=== PATIENT | male | born 1990 | race Caucasian/White ===

== ENCOUNTER 2018-02-04 14:22 | Inpatient (IN) | payer OTHER ==
[~2018-02-04] VITALS: Ht 185.4 cm; Wt 88.1 kg
[~2018-02-04 14:22] MED LIST: ACIDOPHILUS1 EACH PO; ALBU90OI61 INH; AZIT500 PO; Avidoxy100 MG PO; BENZ100A PO; CEFU500T30 PO; DOCU100 PO; GUAI600T33 PO; IBUP800 PO; Percocet 5-3251 EACH PO
[2018-02-04 15:36] LABS: BASOPHILS ABSOLUTE AUTO 0.12 K/mm3 (0.00-0.23); BASOPHILS PERCENT AUTO 1 % (0-2); EOSINOPHILS ABSOLUTE AUTO 0.14 K/mm3 (0.00-0.68); EOSINOPHILS PERCENT AUTO 1 % (0-6); Hemoglobin 12.2 g/dL (13.5-17.5); IMMATURE GRAN ABSOLUTE AUTO 0.73 K/mm3 (0.00-0.10); IMMATURE GRAN PERCENT AUTO 4 % (0-1); LYMPHOCYTES ABSOLUTE AUTO 2.52 K/mm3 (0.84-5.20); LYMPHOCYTES PERCENT AUTO 13 % (21-46); MONOCYTES ABSOLUTE AUTO 1.41 K/mm3 (0.16-1.47); MONOCYTES PERCENT AUTO 7 % (4-13); Mean Corpuscular HGB 31.1 pg (26.0-34.0); Mean Corpuscular HGB Conc 32.1 g/dL (31.5-36.5); Mean Platelet Volume 8.2 fL (9.1-12.4); NEUTROPHILS ABSOLUTE AUTO 14.59 K/mm3 (1.96-9.15); NEUTROPHILS PERCENT AUTO 75 % (41-73); Platelet Count 892 K/mm3 (150-400); RDW Coefficient Variation 12.5 % (11.7-14.2); RDW Standard Deviation 44.5 fL (35.1-46.3); Red Blood Cell Count 3.92 M/mm3 (4.30-5.90); White Blood Cell Count 19.51 K/mm3 (4.00-11.30)
[2018-02-04 15:38] LABS: Mean Corpuscular Volume 97 fL (80-100)
[2018-02-04 15:58] LABS: Alanine Aminotransfer (ALT/SGP 151 U/L (12-78); Albumin, Blood 2.4 g/dL (3.4-5.0); Albumin/Globulin Ratio 0.4 (0.8-1.8); Alk Phos 199 U/L (50-136); Anion Gap 6 mmol/L (6-16); Aspartate Aminotrans (AST/SGOT 57 U/L (12-37); Bilirubin, Total 0.7 mg/dL (0.1-1.0); Blood Urea Nitrogen 9 mg/dL (8-24); Bun/Creatinine Ratio 12.8 (12.0-20.0); CO2, Blood 30 mmol/L (21-32); Calcium, Blood 9.1 mg/dL (8.5-10.1); Chloride, Blood 100 mmol/L (98-108); Globulin, Blood 6.1 g/dL (2.2-4.0); Glomerular Filtration Rate >60 (60-); Glucose, Blood 94 mg/dL (70-99); Potassium, Blood 3.8 mmol/L (3.5-5.5); Sodium, Blood 136 mmol/L (136-145); Total Protein, Blood 8.5 g/dL (6.4-8.2)
[2018-02-04 22:08] LABS: U Amphetamine Screen DETECTED; U Barbituate Screen Not Detected; U Benzodiazapine Screen Not Detected; U Buprenorphine Screen Not Detected; U Cannabinoids Screen DETECTED; U Cocaine Screen Not Detected; U Methadone Screen Not Detected; U Methamphetamine Screen Not Detected; U Opiates Screen Not Detected; U Oxycodone Screen Not Detected; U Phencyclidine Screen Not Detected; U Propoxyphene Screen Not Detected
[2018-02-05 05:46] LABS: BASOPHILS ABSOLUTE AUTO 0.13 K/mm3 (0.00-0.23); BASOPHILS PERCENT AUTO 1 % (0-2); EOSINOPHILS ABSOLUTE AUTO 0.26 K/mm3 (0.00-0.68); EOSINOPHILS PERCENT AUTO 2 % (0-6); Hematocrit 33.6 % (37.0-53.0); Hemoglobin 10.8 g/dL (13.5-17.5); IMMATURE GRAN ABSOLUTE AUTO 0.54 K/mm3 (0.00-0.10); IMMATURE GRAN PERCENT AUTO 4 % (0-1); LYMPHOCYTES ABSOLUTE AUTO 3.11 K/mm3 (0.84-5.20); LYMPHOCYTES PERCENT AUTO 20 % (21-46); MONOCYTES ABSOLUTE AUTO 1.31 K/mm3 (0.16-1.47); MONOCYTES PERCENT AUTO 9 % (4-13); Mean Corpuscular HGB 30.5 pg (26.0-34.0); Mean Corpuscular HGB Conc 32.1 g/dL (31.5-36.5); Mean Corpuscular Volume 95 fL (80-100); Mean Platelet Volume 8.4 fL (9.1-12.4); NEUTROPHILS ABSOLUTE AUTO 10.14 K/mm3 (1.96-9.15); NEUTROPHILS PERCENT AUTO 65 % (41-73); Platelet Count 750 K/mm3 (150-400); RDW Coefficient Variation 12.4 % (11.7-14.2); RDW Standard Deviation 43.1 fL (35.1-46.3); Red Blood Cell Count 3.54 M/mm3 (4.30-5.90); White Blood Cell Count 15.49 K/mm3 (4.00-11.30)
[2018-02-05 05:58] LABS: International Normalized Ratio 1.13; Prothrombin Time Results 11.6 Sec (9.7-11.5)
[2018-02-05 06:32] LABS: Magnesium, Blood 2.2 mg/dL (1.6-2.4)
[2018-02-05 06:33] LABS: Alanine Aminotransfer (ALT/SGP 107 U/L (12-78); Albumin, Blood 1.9 g/dL (3.4-5.0); Albumin/Globulin Ratio 0.4 (0.8-1.8); Alk Phos 162 U/L (50-136); Anion Gap 8 mmol/L (6-16); Aspartate Aminotrans (AST/SGOT 42 U/L (12-37); Bilirubin, Total 0.8 mg/dL (0.1-1.0); Blood Urea Nitrogen 7 mg/dL (8-24); Bun/Creatinine Ratio 9.1 (12.0-20.0); CO2, Blood 27 mmol/L (21-32); Calcium, Blood 8.4 mg/dL (8.5-10.1); Chloride, Blood 104 mmol/L (98-108); Creatinine, Blood 0.77 mg/dL (0.60-1.20); Globulin, Blood 4.9 g/dL (2.2-4.0); Glomerular Filtration Rate >60 (60-); Glucose, Blood 84 mg/dL (70-99); Potassium, Blood 4.1 mmol/L (3.5-5.5); Sodium, Blood 139 mmol/L (136-145); Total Protein, Blood 6.8 g/dL (6.4-8.2)
[2018-02-05 12:24] LABS: Protein, Body Fluid 4.8 g/dL
[2018-02-05 12:31] LABS: Appearance, Body Fluid Cloudy (Clear); Automated BF RBC Count 0.016 M/mm3 (0-0); Body Fluid WBC Count 25620 /mm3 (0-999); Color, Body Fluid Yellow (None-Yellow); RBC Count, Body Fluid 16000 /mm3 (0-0)
[2018-02-05 13:30] LABS: Total Cell Count, Body Fluid 100
[2018-02-05 13:32] LABS: Glucose, Body Fluid <1 mg/dL
[2018-02-05 13:49] LABS: Vancomycin, Trough 20.4 ug/mL (5.0-10.0)
[2018-02-05 14:16] LABS: Lactate Dehydrogenase, Body Fl 5381 U/L
[2018-02-06 04:46] LABS: BASOPHILS ABSOLUTE AUTO 0.13 K/mm3 (0.00-0.23); BASOPHILS PERCENT AUTO 1 % (0-2); EOSINOPHILS ABSOLUTE AUTO 0.29 K/mm3 (0.00-0.68); EOSINOPHILS PERCENT AUTO 3 % (0-6); Hematocrit 33.6 % (37.0-53.0); Hemoglobin 10.7 g/dL (13.5-17.5); IMMATURE GRAN PERCENT AUTO 4 % (0-1); LYMPHOCYTES ABSOLUTE AUTO 2.95 K/mm3 (0.84-5.20); LYMPHOCYTES PERCENT AUTO 27 % (21-46); MONOCYTES PERCENT AUTO 8 % (4-13); Mean Corpuscular HGB 31.1 pg (26.0-34.0); Mean Corpuscular HGB Conc 31.8 g/dL (31.5-36.5); Mean Platelet Volume 8.2 fL (9.1-12.4); NEUTROPHILS ABSOLUTE AUTO 6.36 K/mm3 (1.96-9.15); NEUTROPHILS PERCENT AUTO 58 % (41-73); Platelet Count 717 K/mm3 (150-400); RDW Coefficient Variation 12.2 % (11.7-14.2); Red Blood Cell Count 3.44 M/mm3 (4.30-5.90); White Blood Cell Count 11.03 K/mm3 (4.00-11.30)
[2018-02-06 04:48] LABS: Mean Corpuscular Volume 98 fL (80-100)
[2018-02-06 05:04] LABS: Anion Gap 7 mmol/L (6-16); Blood Urea Nitrogen 7 mg/dL (8-24); Bun/Creatinine Ratio 9.5 (12.0-20.0); CO2, Blood 26 mmol/L (21-32); Calcium, Blood 8.2 mg/dL (8.5-10.1); Chloride, Blood 109 mmol/L (98-108); Creatinine, Blood 0.74 mg/dL (0.60-1.20); Glomerular Filtration Rate >60 (60-); Glucose, Blood 104 mg/dL (70-99); Sodium, Blood 142 mmol/L (136-145)
[2018-02-06 15:36] LABS: Vancomycin, Trough 19.7 ug/mL (5.0-10.0)
[2018-02-07 07:18] LABS: BASOPHILS ABSOLUTE AUTO 0.14 K/mm3 (0.00-0.23); BASOPHILS PERCENT AUTO 1 % (0-2); EOSINOPHILS ABSOLUTE AUTO 0.41 K/mm3 (0.00-0.68); EOSINOPHILS PERCENT AUTO 4 % (0-6); Hematocrit 35.3 % (37.0-53.0); Hemoglobin 11.3 g/dL (13.5-17.5); IMMATURE GRAN ABSOLUTE AUTO 0.19 K/mm3 (0.00-0.10); IMMATURE GRAN PERCENT AUTO 2 % (0-1); LYMPHOCYTES ABSOLUTE AUTO 2.56 K/mm3 (0.84-5.20); LYMPHOCYTES PERCENT AUTO 23 % (21-46); MONOCYTES ABSOLUTE AUTO 0.87 K/mm3 (0.16-1.47); MONOCYTES PERCENT AUTO 8 % (4-13); Mean Corpuscular HGB 31.2 pg (26.0-34.0); Mean Corpuscular Volume 98 fL (80-100); Mean Platelet Volume 8.3 fL (9.1-12.4); NEUTROPHILS ABSOLUTE AUTO 7.23 K/mm3 (1.96-9.15); NEUTROPHILS PERCENT AUTO 63 % (41-73); Platelet Count 693 K/mm3 (150-400); RDW Coefficient Variation 12.3 % (11.7-14.2); RDW Standard Deviation 44.2 fL (35.1-46.3); Red Blood Cell Count 3.62 M/mm3 (4.30-5.90)
[2018-02-07 07:41] LABS: Alanine Aminotransfer (ALT/SGP 82 U/L (12-78); Albumin, Blood 1.9 g/dL (3.4-5.0); Albumin/Globulin Ratio 0.4 (0.8-1.8); Alk Phos 144 U/L (50-136); Anion Gap 9 mmol/L (6-16); Aspartate Aminotrans (AST/SGOT 30 U/L (12-37); Bilirubin, Total 0.3 mg/dL (0.1-1.0); Blood Urea Nitrogen 6 mg/dL (8-24); Bun/Creatinine Ratio 6.9 (12.0-20.0); CO2, Blood 27 mmol/L (21-32); Calcium, Blood 8.5 mg/dL (8.5-10.1); Chloride, Blood 108 mmol/L (98-108); Creatinine, Blood 0.87 mg/dL (0.60-1.20); Globulin, Blood 5.1 g/dL (2.2-4.0); Glomerular Filtration Rate >60 (60-); Glucose, Blood 99 mg/dL (70-99); Potassium, Blood 4.3 mmol/L (3.5-5.5); Sodium, Blood 144 mmol/L (136-145)
[2018-02-07 08:21] LABS: HBSAG SCREEN Negative (Negative); HEP A AB, IGM Negative (Negative); HEP B CORE AB, IGM Negative (Negative); HEP C VIRUS AB <0.1 (0.0-0.9)
[2018-02-08 05:03] LABS: BASOPHILS ABSOLUTE AUTO 0.13 K/mm3 (0.00-0.23); BASOPHILS PERCENT AUTO 1 % (0-2); EOSINOPHILS ABSOLUTE AUTO 0.34 K/mm3 (0.00-0.68); EOSINOPHILS PERCENT AUTO 3 % (0-6); Hematocrit 35.4 % (37.0-53.0); Hemoglobin 11.1 g/dL (13.5-17.5); IMMATURE GRAN ABSOLUTE AUTO 0.12 K/mm3 (0.00-0.10); IMMATURE GRAN PERCENT AUTO 1 % (0-1); LYMPHOCYTES ABSOLUTE AUTO 2.33 K/mm3 (0.84-5.20); LYMPHOCYTES PERCENT AUTO 19 % (21-46); MONOCYTES ABSOLUTE AUTO 0.76 K/mm3 (0.16-1.47); MONOCYTES PERCENT AUTO 6 % (4-13); Mean Corpuscular HGB 30.6 pg (26.0-34.0); Mean Corpuscular HGB Conc 31.4 g/dL (31.5-36.5); Mean Corpuscular Volume 98 fL (80-100); Mean Platelet Volume 8.4 fL (9.1-12.4); NEUTROPHILS ABSOLUTE AUTO 8.53 K/mm3 (1.96-9.15); NEUTROPHILS PERCENT AUTO 70 % (41-73); Platelet Count 722 K/mm3 (150-400); RDW Coefficient Variation 12.1 % (11.7-14.2); RDW Standard Deviation 43.5 fL (35.1-46.3); Red Blood Cell Count 3.63 M/mm3 (4.30-5.90); White Blood Cell Count 12.21 K/mm3 (4.00-11.30)
[2018-02-08 11:54] LABS: Creatinine, Blood 0.93 mg/dL (0.60-1.20); Vancomycin, Trough 18.3 ug/mL (5.0-10.0)
[2018-02-09 05:18] LABS: BASOPHILS ABSOLUTE AUTO 0.16 K/mm3 (0.00-0.23); BASOPHILS PERCENT AUTO 1 % (0-2); EOSINOPHILS ABSOLUTE AUTO 0.42 K/mm3 (0.00-0.68); EOSINOPHILS PERCENT AUTO 3 % (0-6); Hematocrit 35.8 % (37.0-53.0); Hemoglobin 11.3 g/dL (13.5-17.5); IMMATURE GRAN ABSOLUTE AUTO 0.15 K/mm3 (0.00-0.10); IMMATURE GRAN PERCENT AUTO 1 % (0-1); LYMPHOCYTES ABSOLUTE AUTO 2.57 K/mm3 (0.84-5.20); LYMPHOCYTES PERCENT AUTO 19 % (21-46); MONOCYTES ABSOLUTE AUTO 1.01 K/mm3 (0.16-1.47); MONOCYTES PERCENT AUTO 8 % (4-13); Mean Corpuscular HGB Conc 31.6 g/dL (31.5-36.5); Mean Corpuscular Volume 98 fL (80-100); Mean Platelet Volume 8.5 fL (9.1-12.4); NEUTROPHILS ABSOLUTE AUTO 9.23 K/mm3 (1.96-9.15); NEUTROPHILS PERCENT AUTO 68 % (41-73); Platelet Count 647 K/mm3 (150-400); RDW Coefficient Variation 12.3 % (11.7-14.2); RDW Standard Deviation 44.2 fL (35.1-46.3); Red Blood Cell Count 3.65 M/mm3 (4.30-5.90); White Blood Cell Count 13.54 K/mm3 (4.00-11.30)
[2018-02-09 05:39] LABS: Alanine Aminotransfer (ALT/SGP 67 U/L (12-78); Albumin, Blood 2.1 g/dL (3.4-5.0); Albumin/Globulin Ratio 0.4 (0.8-1.8); Alk Phos 120 U/L (50-136); Anion Gap 6 mmol/L (6-16); Aspartate Aminotrans (AST/SGOT 30 U/L (12-37); Bilirubin, Total 0.3 mg/dL (0.1-1.0); Blood Urea Nitrogen 6 mg/dL (8-24); Bun/Creatinine Ratio 6.4 (12.0-20.0); CO2, Blood 29 mmol/L (21-32); Calcium, Blood 8.6 mg/dL (8.5-10.1); Chloride, Blood 108 mmol/L (98-108); Creatinine, Blood 0.94 mg/dL (0.60-1.20); Globulin, Blood 4.8 g/dL (2.2-4.0); Glomerular Filtration Rate >60 (60-); Glucose, Blood 95 mg/dL (70-99); Potassium, Blood 3.8 mmol/L (3.5-5.5); Sodium, Blood 143 mmol/L (136-145); Total Protein, Blood 6.9 g/dL (6.4-8.2)
[2018-02-09] MEDS ORDERED: ALBU90OI INH (14:20)
[2018-02-09] MEDS ORDERED: ACET325 PO (14:21)
[2018-02-09] MEDS ORDERED: NICO21TP TOP (14:22)
[2018-02-09] MEDS ORDERED: ONDA4ODT SL (14:22)
[2018-02-09] MEDS ORDERED: Augmentin Xr 11 EACH PO (14:23)
[2018-02-09] MEDS ORDERED: Percocet 5-3251 EACH PO (14:23)
[2018-02-10 13:10] LABS: FINAL INTERPRETATION Negative (.); HIV 1 AB Negative (Negative); HIV 2 AB Negative (Negative)
== END 2018-02-09 14:39 | disposition home or self-care (01) | DRG 193 ==
LOC: ER 14:22 → MEDS 19:45
PROVIDERS: Emergency Medicine; Family Medicine; Hospitalist; Internal Medicine Critical Care Medicine; Nurse Practitioner Acute Care; Pharmacist
PROC: 0W9930Z Drainage of Right Pleural Cavity with Drainage Device, Percutaneous Approach (ICD-10-PCS; principal; 2018-02-05)
DX: J18.9 Pneumonia, unspecified organism (principal); J86.9 Pyothorax without fistula; J91.8 Pleural effusion in other conditions classified elsewhere; F17.210 Nicotine dependence, cigarettes, uncomplicated; J45.20 Mild intermittent asthma, uncomplicated; K02.9 Dental caries, unspecified; F15.10 Other stimulant abuse, uncomplicated; F11.10 Opioid abuse, uncomplicated; D64.9 Anemia, unspecified; D47.3 Essential (hemorrhagic) thrombocythemia; R00.1 Bradycardia, unspecified; Z79.2 Long term (current) use of antibiotics; Z79.891 Long term (current) use of opiate analgesic; Z79.899 Other long term (current) drug therapy
CPT/HCPCS: 36415; 71046; 71260; 75989; 80048; 80053; 80074; 80202; 82565; 82945; 83605; 83615; 83690; 83735; 83986; 84157; 85025; 85027; 85610; 85730; 86701; 86702; 87040; 87070; 87205; 87449; 89051; 93005; 93010; 94760; 96365; 96366; 96368; 99285-25; J2543; J3010; J3370; J7030; J7050; J7120; Q9967

== ENCOUNTER → 2018-08-05 | Outpatient (CLI) | payer OTHER ==
[~2018-08-05] MED LIST changes: +ACET325 PO; +ALBU90OI INH; +Augmentin Xr 11 EACH PO; +NICO21TP TOP; +ONDA4ODT SL
[2018-08-05 14:16] LABS: BASOPHILS ABSOLUTE AUTO 0.06 K/mm3 (0.00-0.23); BASOPHILS PERCENT AUTO 1 % (0-2); EOSINOPHILS ABSOLUTE AUTO 0.52 K/mm3 (0.00-0.68); EOSINOPHILS PERCENT AUTO 6 % (0-6); Hematocrit 43.3 % (37.0-53.0); Hemoglobin 14.5 g/dL (13.5-17.5); IMMATURE GRAN ABSOLUTE AUTO 0.02 K/mm3 (0.00-0.10); IMMATURE GRAN PERCENT AUTO 0 % (0-1); LYMPHOCYTES ABSOLUTE AUTO 2.22 K/mm3 (0.84-5.20); LYMPHOCYTES PERCENT AUTO 27 % (21-46); MONOCYTES ABSOLUTE AUTO 0.73 K/mm3 (0.16-1.47); MONOCYTES PERCENT AUTO 9 % (4-13); Mean Corpuscular HGB 31.3 pg (26.0-34.0); Mean Corpuscular HGB Conc 33.5 g/dL (31.5-36.5); Mean Corpuscular Volume 94 fL (80-100); Mean Platelet Volume 9.5 fL (9.1-12.4); NEUTROPHILS ABSOLUTE AUTO 4.58 K/mm3 (1.96-9.15); NEUTROPHILS PERCENT AUTO 56 % (41-73); Platelet Count 336 K/mm3 (150-400); RDW Coefficient Variation 13.2 % (11.7-14.2); RDW Standard Deviation 45.2 fL (35.1-46.3); Red Blood Cell Count 4.63 M/mm3 (4.30-5.90); White Blood Cell Count 8.13 K/mm3 (4.00-11.30)
[2018-08-05 14:22] LABS: Anion Gap 6 mmol/L (6-16); Blood Urea Nitrogen 11 mg/dL (8-24); Bun/Creatinine Ratio 10.7 (12.0-20.0); CO2, Blood 29 mmol/L (21-32); Calcium, Blood 8.9 mg/dL (8.5-10.1); Chloride, Blood 106 mmol/L (98-108); Creatinine, Blood 1.03 mg/dL (0.60-1.20); Glomerular Filtration Rate >60 (60-); Glucose, Blood 81 mg/dL (70-99); Potassium, Blood 4.2 mmol/L (3.5-5.5); Sodium, Blood 141 mmol/L (136-145)
== END | disposition home or self-care (01) ==
LOC: LAB SHORT 14:12 → LAB EV 14:12
PROVIDERS: Family Medicine
DX: R55 Syncope and collapse (principal)
CPT/HCPCS: 80048; 85025

== ENCOUNTER 2019-09-12 19:20 | Emergency (ER) | payer OTHER ==
[~2019-09-12] VITALS: Ht 185.4 cm; Wt 76.7 kg
[2019-09-12 19:47] LABS: BASOPHILS ABSOLUTE AUTO 0.08 K/mm3 (0.00-0.23); BASOPHILS PERCENT AUTO 1 % (0-2); EOSINOPHILS ABSOLUTE AUTO 0.95 K/mm3 (0.00-0.68); EOSINOPHILS PERCENT AUTO 7 % (0-6); Hematocrit 48.4 % (37.0-53.0); Hemoglobin 15.7 g/dL (13.5-17.5); IMMATURE GRAN ABSOLUTE AUTO 0.05 K/mm3 (0.00-0.10); IMMATURE GRAN PERCENT AUTO 0 % (0-1); LYMPHOCYTES ABSOLUTE AUTO 3.37 K/mm3 (0.84-5.20); LYMPHOCYTES PERCENT AUTO 25 % (21-46); MONOCYTES ABSOLUTE AUTO 1.74 K/mm3 (0.16-1.47); MONOCYTES PERCENT AUTO 13 % (4-13); Mean Corpuscular HGB 31.2 pg (26.0-34.0); Mean Corpuscular HGB Conc 32.4 g/dL (31.5-36.5); Mean Corpuscular Volume 96 fL (80-100); Mean Platelet Volume 10.5 fL (9.1-12.4); NEUTROPHILS ABSOLUTE AUTO 7.42 K/mm3 (1.96-9.15); NEUTROPHILS PERCENT AUTO 54 % (41-73); Platelet Count 294 K/mm3 (150-400); RDW Coefficient Variation 12.8 % (11.7-14.2); RDW Standard Deviation 44.7 fL (35.1-46.3); Red Blood Cell Count 5.04 M/mm3 (4.30-5.90); White Blood Cell Count 13.61 K/mm3 (4.00-11.30)
[2019-09-12] MEDS ORDERED: Zithromax250 MG PO (21:20)
[2019-09-12] MEDS ORDERED: ALBU90OI INH (21:20)
[2019-09-12] MEDS ORDERED: Prednisone50 MG PO (21:20)
[2019-09-12 21:50] LABS: Alanine Aminotransfer (ALT/SGP 29 U/L (12-78); Albumin, Blood 3.8 g/dL (3.4-5.0); Alk Phos 113 U/L (50-136); Anion Gap 0 mmol/L (6-16); Aspartate Aminotrans (AST/SGOT 26 U/L (12-37); Bilirubin, Total 0.6 mg/dL (0.1-1.0); Blood Urea Nitrogen 10 mg/dL (8-24); Bun/Creatinine Ratio 13.1 (12.0-20.0); CO2, Blood 33 mmol/L (21-32); Calcium, Blood 9.2 mg/dL (8.5-10.1); Chloride, Blood 108 mmol/L (98-108); Creatinine, Blood 0.76 mg/dL (0.60-1.20); Globulin, Blood 3.9 g/dL (2.2-4.0); Glomerular Filtration Rate >60 (60-); Glucose, Blood 114 mg/dL (70-99); Potassium, Blood 4.7 mmol/L (3.5-5.5); Sodium, Blood 141 mmol/L (136-145); Total Protein, Blood 7.7 g/dL (6.4-8.2)
== END 2019-09-12 23:46 | disposition home or self-care (01) ==
LOC: ER 19:20
PROVIDERS: Emergency Medicine
DX: J45.901 Unspecified asthma with (acute) exacerbation (principal); J20.9 Acute bronchitis, unspecified; Z79.2 Long term (current) use of antibiotics; Z79.899 Other long term (current) drug therapy; F17.200 Nicotine dependence, unspecified, uncomplicated
CPT/HCPCS: 36416; 71046; 80053; 85025; 93005; 93010; 94640; 94644; 99285-25; J7512

== ENCOUNTER 2021-01-02 08:16 | Inpatient (IN) | payer OTHER ==
[~2021-01-02] VITALS: Ht 185.4 cm; Wt 70.8 kg
[~2021-01-02 08:16] MED LIST changes: +Deltasone 10 mg10 MG; +FLUTICASONE-SA1 EAC2 INH; +PROAIR RESPICL90 MCG INH; +Prednisone50 MG PO; +Zithromax250 MG PO
[2021-01-02 09:36] LABS: BASOPHILS ABSOLUTE AUTO 0.06 K/mm3 (0.00-0.23); BASOPHILS PERCENT AUTO 0 % (0-2); EOSINOPHILS ABSOLUTE AUTO 0.53 K/mm3 (0.00-0.68); EOSINOPHILS PERCENT AUTO 3 % (0-6); Hematocrit 48.6 % (37.0-53.0); Hemoglobin 16.1 g/dL (13.5-17.5); IMMATURE GRAN ABSOLUTE AUTO 0.08 K/mm3 (0.00-0.10); IMMATURE GRAN PERCENT AUTO 0 % (0-1); LYMPHOCYTES ABSOLUTE AUTO 1.46 K/mm3 (0.84-5.20); LYMPHOCYTES PERCENT AUTO 8 % (21-46); MONOCYTES ABSOLUTE AUTO 0.82 K/mm3 (0.16-1.47); MONOCYTES PERCENT AUTO 5 % (4-13); Mean Corpuscular HGB 30.7 pg (26.0-34.0); Mean Corpuscular HGB Conc 33.1 g/dL (31.5-36.5); Mean Corpuscular Volume 93 fL (80-100); Mean Platelet Volume 9.5 fL (9.1-12.4); NEUTROPHILS ABSOLUTE AUTO 15.14 K/mm3 (1.96-9.15); NEUTROPHILS PERCENT AUTO 84 % (41-73); Platelet Count 347 K/mm3 (150-400); RDW Coefficient Variation 12.7 % (11.7-14.2); RDW Standard Deviation 43.5 fL (35.1-46.3); Red Blood Cell Count 5.25 M/mm3 (4.30-5.90); White Blood Cell Count 18.09 K/mm3 (4.00-11.30)
[2021-01-02 09:57] LABS: Anion Gap 4 mmol/L (6-16); Blood Urea Nitrogen 14 mg/dL (8-24); Bun/Creatinine Ratio 17.2 (12.0-20.0); CO2, Blood 28 mmol/L (21-32); Calcium, Blood 9.7 mg/dL (8.5-10.1); Chloride, Blood 108 mmol/L (98-108); Creatinine, Blood 0.81 mg/dL (0.60-1.20); Glomerular Filtration Rate >60 (60-); Glucose, Blood 100 mg/dL (70-99); Potassium, Blood 4.9 mmol/L (3.5-5.5); Sodium, Blood 140 mmol/L (136-145)
[2021-01-02 12:48] LABS: Source, Urine Clean Catch
[2021-01-02 12:51] LABS: Appearance, Urine Clear (Clear); Bilirubin, Urine Neg (Neg); Blood, Urine 2+ (Neg); Color, Urine Yellow (P-Yellow); Glucose Qualitative, Urine Neg (Neg); Ketones, Urine 3+ (Neg); Leukocyte Esterase, Urine Neg (Neg); Nitrite, Urine Neg (Neg); Protein, Urine Neg (Neg); Urobilinogen, Urine NORM (Normal)
[2021-01-02 12:57] LABS: Base Excess Venous 2.7 mmol/L; Bicarbonate Venous 24.4 mmol/L (24.0-30.0); PO2 Venous 46.9 mmHg (38-42); pH Blood Venous 7.27 (7.34-7.37)
[2021-01-02 13:04] LABS: U Amphetamine Screen DETECTED; U Barbituate Screen Not Detected; U Benzodiazapine Screen Not Detected; U Cannabinoids Screen DETECTED; U Cocaine Screen Not Detected; U Methadone Screen Not Detected; U Methamphetamine Screen DETECTED; U Opiates Screen Not Detected; U Phencyclidine Screen Not Detected
[2021-01-02 13:05] LABS: U Buprenorphine Screen Not Detected; U Oxycodone Screen Not Detected; U Propoxyphene Screen Not Detected
[2021-01-02 13:26] LABS: Bacteria Few /hpf; Red Blood Cells, Urine 0-2 /hpf (0-2); Squamous Epithelial Cells Rare /hpf (Few); White Blood Cells, Urine Rare /hpf (0-5)
--- NOTE | 2021-01-02 16:05 | NUR ---
PATIENT ARRIVED TO UNIT APPROX 1520 VIA WHEELCHAIR PATIENT A&OX4 VSS UP AD GEORGE WITH STEADY GAIT ADMIT FOR ASTHMA/COPD EXACERBATION SATS 99-100% ON RA VERBALIZES MAGALLANES SKIN W/D INTACT ORIENTATED TO ENVIROMENT NO S/S DISTRESS NOTED WILL CONT TO MONITOR
[2021-01-03 05:55] LABS: BASOPHILS ABSOLUTE AUTO 0.04 K/mm3 (0.00-0.23); BASOPHILS PERCENT AUTO 0 % (0-2); EOSINOPHILS ABSOLUTE AUTO 0.03 K/mm3 (0.00-0.68); EOSINOPHILS PERCENT AUTO 0 % (0-6); Hematocrit 43.6 % (37.0-53.0); Hemoglobin 14.7 g/dL (13.5-17.5); IMMATURE GRAN ABSOLUTE AUTO 0.33 K/mm3 (0.00-0.10); IMMATURE GRAN PERCENT AUTO 1 % (0-1); LYMPHOCYTES ABSOLUTE AUTO 1.15 K/mm3 (0.84-5.20); LYMPHOCYTES PERCENT AUTO 4 % (21-46); MONOCYTES ABSOLUTE AUTO 1.49 K/mm3 (0.16-1.47); MONOCYTES PERCENT AUTO 5 % (4-13); Mean Corpuscular HGB 30.9 pg (26.0-34.0); Mean Corpuscular HGB Conc 33.7 g/dL (31.5-36.5); Mean Corpuscular Volume 92 fL (80-100); Mean Platelet Volume 9.2 fL (9.1-12.4); NEUTROPHILS ABSOLUTE AUTO 24.59 K/mm3 (1.96-9.15); NEUTROPHILS PERCENT AUTO 89 % (41-73); Platelet Count 386 K/mm3 (150-400); RDW Coefficient Variation 12.7 % (11.7-14.2); RDW Standard Deviation 42.5 fL (35.1-46.3); Red Blood Cell Count 4.76 M/mm3 (4.30-5.90); White Blood Cell Count 27.63 K/mm3 (4.00-11.30)
[2021-01-03 06:17] LABS: Alanine Aminotransfer (ALT/SGP 23 U/L (12-78); Albumin, Blood 3.4 g/dL (3.4-5.0); Albumin/Globulin Ratio 0.8 (0.8-1.8); Alk Phos 67 U/L (50-136); Anion Gap 4 mmol/L (6-16); Aspartate Aminotrans (AST/SGOT 14 U/L (12-37); Bilirubin, Total 1.5 mg/dL (0.1-1.0); Blood Urea Nitrogen 11 mg/dL (8-24); Bun/Creatinine Ratio 14.6 (12.0-20.0); CO2, Blood 26 mmol/L (21-32); Calcium, Blood 9.5 mg/dL (8.5-10.1); Chloride, Blood 111 mmol/L (98-108); Creatinine, Blood 0.76 mg/dL (0.60-1.20); Glomerular Filtration Rate >60 (60-); Glucose, Blood 112 mg/dL (70-99); Magnesium, Blood 2.3 mg/dL (1.6-2.4); Potassium, Blood 4.2 mmol/L (3.5-5.5); Sodium, Blood 141 mmol/L (136-145); Total Protein, Blood 7.4 g/dL (6.4-8.2)
--- NOTE | 2021-01-03 08:08 | NUR ---
PT IA A&OX4. PT'S VITAL SIGNS ARE WNL. WHEEZING NOTED ON ALL FOUR QUADRANTS OF PATIENT'S CHEST. PT'S SOLU MEDROL IV ADMINISTERED, PT TOLERATED WELL. PT DENIES PAIN OR DISCOMFORT.
--- NOTE | 2021-01-03 16:05 | NUR ---
SUMMARY: PT IS A/O, VSS, NO ACUTE CHANGE TODAY. PT CONTINUES ON 2L 02 SP02 96%. PT REPORTS MORE SOB WITH INCREASED ACTIVITY , PT ABLE TO SHOWER TODAY WHILE SITTING ON SHOWER CHAIR AND TOLERATED WELL. PRN BREATHING TX AND IV SOLUMEDROL GIVEN. NO C/O CP, NO ACUTE CONCERNS.WILL CTM AND REPORT TO [facility].
[2021-01-04 04:42] LABS: BASOPHILS ABSOLUTE AUTO 0.03 K/mm3 (0.00-0.23); BASOPHILS PERCENT AUTO 0 % (0-2); EOSINOPHILS PERCENT AUTO 0 % (0-6); Hematocrit 42.4 % (37.0-53.0); Hemoglobin 14.2 g/dL (13.5-17.5); IMMATURE GRAN ABSOLUTE AUTO 0.66 K/mm3 (0.00-0.10); IMMATURE GRAN PERCENT AUTO 2 % (0-1); LYMPHOCYTES ABSOLUTE AUTO 0.66 K/mm3 (0.84-5.20); LYMPHOCYTES PERCENT AUTO 2 % (21-46); MONOCYTES ABSOLUTE AUTO 0.55 K/mm3 (0.16-1.47); MONOCYTES PERCENT AUTO 2 % (4-13); Mean Corpuscular HGB Conc 33.5 g/dL (31.5-36.5); Mean Corpuscular Volume 93 fL (80-100); Mean Platelet Volume 9.5 fL (9.1-12.4); NEUTROPHILS PERCENT AUTO 93 % (41-73); Platelet Count 362 K/mm3 (150-400); RDW Standard Deviation 44.2 fL (35.1-46.3); Red Blood Cell Count 4.58 M/mm3 (4.30-5.90)
[2021-01-04 04:59] LABS: Albumin, Blood 3.3 g/dL (3.4-5.0); Anion Gap 4 mmol/L (6-16); Blood Urea Nitrogen 18 mg/dL (8-24); Bun/Creatinine Ratio 22.2 (12.0-20.0); CO2, Blood 28 mmol/L (21-32); Calcium, Blood 9.8 mg/dL (8.5-10.1); Chloride, Blood 108 mmol/L (98-108); Creatinine, Blood 0.81 mg/dL (0.60-1.20); Glomerular Filtration Rate >60 (60-); Glucose, Blood 120 mg/dL (70-99); Phosphorus, Blood 2.7 mg/dL (2.5-4.9); Potassium, Blood 4.4 mmol/L (3.5-5.5); Sodium, Blood 140 mmol/L (136-145)
--- NOTE | 2021-01-04 06:23 | NUR ---
30 year old MAle homeless & had acute panic attack & COPD prior to admit with good improvement noted with neb use. weaned off supplemental oxygen. 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 Sw referral for unmet needs.
--- NOTE | 2021-01-04 15:50 | NUR ---
PATIENT REMAINS STABLE THROUGHOUT SHIFT NO CHANGES IN CONDITION NOTED VSS REMAINS ON RA SATS 97-100% LS CLEAR THROUGHOUT REMAINS WITH DRY NON-PRODUCTIVE COUGH VERBALIZES SOME MAGALLANES UP AD GEORGE INDEPENDENT WITH ADL'S GAIT STEADY A&OX4 DENIES PAIN NO S/S DISRRESS NOTED WILL CONT TO MONITOR
--- NOTE | 2021-01-05 06:49 | NUR ---
Pt weaning off steroids & continues to be cooperativ. Room air sats greater than 90%. Lacks housing & resouces says he does have medical insurance. 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
[2021-01-05] MEDS ORDERED: AZIT500 PO (12:19)
[2021-01-05] MEDS ORDERED: GUAI600T33 PO (12:20)
[2021-01-05] MEDS ORDERED: ALBU90OI INH (12:26)
[2021-01-05] MEDS ORDERED: FLUT1DIS5 INH (12:26)
[2021-01-05] MEDS ORDERED: Prednisone10 MG PO (12:27)
--- NOTE | 2021-01-05 13:16 | NUR ---
PATIENT A&OX4 UP AD GEORGE VSS ON RA SATS 100% DENIES PAIN OR DISCOMFORT PATIENT TO BE DISCHARGED PER ORDERS PATIENT WORKING WITH CASE MAN FOR DC PLANNING PATIENT WITH CELL PHONE IN HIS POSESSION PROVIDED BY ALONSO MATIAS ALL DISCHARGE INSTRUCTIONS/PAPERWORK PROVIDED INCLUDING MEDICATIONS DISEAS PROCESS MANAGEMENT AND FOLLOW UP CARE PATIENT VERBALIZES GOOD UNDERSTANDING DC TO RT FOREARM DC'D NO COMPLICATIONS PATIENT CURRENTLY WAITING ON CAB TO PICK HIM UP TO TRANSPORT TO [facility] PER [employer] ARRANGENTS
--- NOTE | 2021-01-05 16:13 | NUR ---
PATIENT DISCHARGED AT THIS TIME PRE ARRANGED CAB HERE TO TRANSPORT PATIENT AMUBLATORY WITH STEADY GAIT ESCORTED OFF OF UNIT BY NURSE NO COMPLIATIONS NOTED NO CONCERNS VOICED AT TIME OF DISCHARGED PATIENT LEFT WITH ALL PERSONAL BELONGINGS
== END 2021-01-05 16:13 | disposition home or self-care (01) | DRG 189 ==
LOC: ER 08:16 → MEDS 08:17
PROVIDERS: Emergency Medicine; Internal Medicine; Nurse Practitioner Acute Care; ADMIT Internal Medicine
DX: J96.01 Acute respiratory failure with hypoxia (principal); J44.1 Chronic obstructive pulmonary disease with (acute) exacerbation; Z20.822 Contact with and (suspected) exposure to COVID-19; F17.210 Nicotine dependence, cigarettes, uncomplicated; F15.10 Other stimulant abuse, uncomplicated; D72.829 Elevated white blood cell count, unspecified; T38.0X5A Adverse effect of glucocorticoids and synthetic analogues, initial encounter; Z59.0 Homelessness
CPT/HCPCS: 36415; 36416; 71045; 80048; 80053; 80069; 81001; 82803; 83735; 83880; 84145; 85025; 94640; 94644; 94760; 94761; 94762; 96372; 96374; 96376; 99285-25; A9270; G0378; J1650; J2930; J7030

== ENCOUNTER 2021-02-07 09:56 | Emergency (ER) | payer OTHER ==
[~2021-02-07] VITALS: Ht 185.4 cm; Wt 68.0 kg
[~2021-02-07 09:56] MED LIST changes: +FLUT1DIS5 INH; +Prednisone10 MG PO
[2021-02-07 10:39] LABS: BASOPHILS ABSOLUTE AUTO 0.08 K/mm3 (0.00-0.23); BASOPHILS PERCENT AUTO 1 % (0-2); EOSINOPHILS ABSOLUTE AUTO 0.23 K/mm3 (0.00-0.68); EOSINOPHILS PERCENT AUTO 1 % (0-6); Hematocrit 42.4 % (37.0-53.0); IMMATURE GRAN ABSOLUTE AUTO 0.06 K/mm3 (0.00-0.10); IMMATURE GRAN PERCENT AUTO 0 % (0-1); LYMPHOCYTES ABSOLUTE AUTO 2.68 K/mm3 (0.84-5.20); LYMPHOCYTES PERCENT AUTO 16 % (21-46); MONOCYTES PERCENT AUTO 9 % (4-13); Mean Corpuscular HGB 30.9 pg (26.0-34.0); Mean Corpuscular Volume 94 fL (80-100); Mean Platelet Volume 9.4 fL (9.1-12.4); NEUTROPHILS ABSOLUTE AUTO 12.54 K/mm3 (1.96-9.15); NEUTROPHILS PERCENT AUTO 73 % (41-73); Platelet Count 397 K/mm3 (150-400); RDW Coefficient Variation 12.9 % (11.7-14.2); RDW Standard Deviation 44.1 fL (35.1-46.3); Red Blood Cell Count 4.53 M/mm3 (4.30-5.90); White Blood Cell Count 17.19 K/mm3 (4.00-11.30)
[2021-02-07 11:03] LABS: Anion Gap 4 mmol/L (6-16); Blood Urea Nitrogen 12 mg/dL (8-24); Bun/Creatinine Ratio 16.2 (12.0-20.0); CO2, Blood 27 mmol/L (21-32); Calcium, Blood 8.7 mg/dL (8.5-10.1); Chloride, Blood 111 mmol/L (98-108); Creatinine, Blood 0.74 mg/dL (0.60-1.20); Glomerular Filtration Rate >60 (60-); Glucose, Blood 65 mg/dL (70-99); Potassium, Blood 3.7 mmol/L (3.5-5.5); Sodium, Blood 142 mmol/L (136-145)
[2021-02-07] MEDS ORDERED: PRED20 PO (13:03)
== END 2021-02-07 13:30 | disposition home or self-care (01) ==
LOC: ER 09:56
PROVIDERS: Emergency Medicine
DX: J44.1 Chronic obstructive pulmonary disease with (acute) exacerbation (principal); F17.210 Nicotine dependence, cigarettes, uncomplicated
CPT/HCPCS: 36415; 71045; 80048; 85025; 93005; 93010; 94644; 99285-25

== ENCOUNTER 2021-02-10 14:53 | Inpatient (IN) | payer OTHER ==
[~2021-02-10] VITALS: Ht 185.4 cm; Wt 73.8 kg
[~2021-02-10 14:53] MED LIST changes: +PRED20 PO
[2021-02-10 15:43] LABS: BASOPHILS ABSOLUTE AUTO 0.11 K/mm3 (0.00-0.23); BASOPHILS PERCENT AUTO 1 % (0-2); EOSINOPHILS ABSOLUTE AUTO 0.76 K/mm3 (0.00-0.68); EOSINOPHILS PERCENT AUTO 5 % (0-6); Hematocrit 49.1 % (37.0-53.0); Hemoglobin 16.5 g/dL (13.5-17.5); IMMATURE GRAN ABSOLUTE AUTO 0.08 K/mm3 (0.00-0.10); IMMATURE GRAN PERCENT AUTO 1 % (0-1); LYMPHOCYTES ABSOLUTE AUTO 3.72 K/mm3 (0.84-5.20); LYMPHOCYTES PERCENT AUTO 26 % (21-46); MONOCYTES ABSOLUTE AUTO 1.26 K/mm3 (0.16-1.47); MONOCYTES PERCENT AUTO 9 % (4-13); Mean Corpuscular HGB Conc 33.6 g/dL (31.5-36.5); Mean Corpuscular Volume 92 fL (80-100); Mean Platelet Volume 9.8 fL (9.1-12.4); NEUTROPHILS ABSOLUTE AUTO 8.18 K/mm3 (1.96-9.15); NEUTROPHILS PERCENT AUTO 58 % (41-73); Platelet Count 440 K/mm3 (150-400); RDW Coefficient Variation 12.8 % (11.7-14.2); RDW Standard Deviation 43.4 fL (35.1-46.3); Red Blood Cell Count 5.32 M/mm3 (4.30-5.90); White Blood Cell Count 14.11 K/mm3 (4.00-11.30)
[2021-02-10 15:50] LABS: Alanine Aminotransfer (ALT/SGP 31 U/L (12-78); Albumin, Blood 3.5 g/dL (3.4-5.0); Albumin/Globulin Ratio 0.9 (0.8-1.8); Alk Phos 76 U/L (50-136); Anion Gap 5 mmol/L (6-16); Aspartate Aminotrans (AST/SGOT 26 U/L (12-37); Bilirubin, Total 1.1 mg/dL (0.1-1.0); Blood Urea Nitrogen 16 mg/dL (8-24); Bun/Creatinine Ratio 21.7 (12.0-20.0); CO2, Blood 26 mmol/L (21-32); Calcium, Blood 9.2 mg/dL (8.5-10.1); Chloride, Blood 109 mmol/L (98-108); Creatinine, Blood 0.74 mg/dL (0.60-1.20); Glomerular Filtration Rate >60 (60-); Glucose, Blood 93 mg/dL (70-99); Potassium, Blood 4.2 mmol/L (3.5-5.5); Sodium, Blood 140 mmol/L (136-145); Total Protein, Blood 7.5 g/dL (6.4-8.2)
[2021-02-10 20:08] LABS: SARS-Cov-2 (COVID-19) PCR, MMC NEGATIVE (NEGATIVE)
--- NOTE | 2021-02-11 03:55 | NUR ---
PATIENT A&OX4. NO COMPLAINTS OF PAIN. REQUESTED URINE SAMPLE ON FIRST VOID, HOWEVER PATIENT FORGOT TO SAVE. SLEPT WELL AFTER ADMISSION. PATIENT VERY ANXIOUS AND DEPRESSED ABOUT WHERE HE IS GOING TO GO WHEN HE'S DISCHARGED. HE HAS FAMILY HERE (X ), BUT NO ONE WHO WOULD TAKE HIM IN. LUNG SOUNDS WITH SCATTERED CRACKLES I/E WHEEZES AND LOOSE SOUNDING UPPER AIRWAYS. HARSH NON PRODUCTIVE COUGH, CURRENTLY ON 4 LITERS NC
[2021-02-11 05:15] LABS: BASOPHILS ABSOLUTE AUTO 0.02 K/mm3 (0.00-0.23); BASOPHILS PERCENT AUTO 0 % (0-2); EOSINOPHILS PERCENT AUTO 0 % (0-6); Hematocrit 44.2 % (37.0-53.0); IMMATURE GRAN PERCENT AUTO 1 % (0-1); LYMPHOCYTES ABSOLUTE AUTO 0.63 K/mm3 (0.84-5.20); LYMPHOCYTES PERCENT AUTO 4 % (21-46); MONOCYTES ABSOLUTE AUTO 0.19 K/mm3 (0.16-1.47); MONOCYTES PERCENT AUTO 1 % (4-13); Mean Corpuscular HGB 30.7 pg (26.0-34.0); Mean Corpuscular HGB Conc 33.9 g/dL (31.5-36.5); Mean Corpuscular Volume 91 fL (80-100); Mean Platelet Volume 9.7 fL (9.1-12.4); NEUTROPHILS ABSOLUTE AUTO 13.44 K/mm3 (1.96-9.15); NEUTROPHILS PERCENT AUTO 94 % (41-73); Platelet Count 425 K/mm3 (150-400); RDW Coefficient Variation 12.5 % (11.7-14.2); RDW Standard Deviation 41.5 fL (35.1-46.3); Red Blood Cell Count 4.88 M/mm3 (4.30-5.90); White Blood Cell Count 14.38 K/mm3 (4.00-11.30)
[2021-02-11 05:24] LABS: Anion Gap 6 mmol/L (6-16); Blood Urea Nitrogen 23 mg/dL (8-24); Bun/Creatinine Ratio 28.9 (12.0-20.0); CO2, Blood 26 mmol/L (21-32); Calcium, Blood 9.8 mg/dL (8.5-10.1); Chloride, Blood 108 mmol/L (98-108); Glomerular Filtration Rate >60 (60-); Glucose, Blood 143 mg/dL (70-99); Potassium, Blood 4.2 mmol/L (3.5-5.5); Sodium, Blood 140 mmol/L (136-145)
[2021-02-11 09:16] LABS: U Amphetamine Screen DETECTED; U Barbituate Screen Not Detected; U Benzodiazapine Screen Not Detected; U Buprenorphine Screen Not Detected; U Cannabinoids Screen DETECTED; U Cocaine Screen Not Detected; U Methadone Screen Not Detected; U Methamphetamine Screen DETECTED; U Opiates Screen Not Detected; U Oxycodone Screen Not Detected; U Phencyclidine Screen Not Detected; U Propoxyphene Screen Not Detected
--- NOTE | 2021-02-11 09:24 | NUR ---
D-Dimer and ECHO Received V.O. from Dr. Broussard for stat d-dimer and ECHO to be ordered. Orders placed.
--- NOTE | 2021-02-11 14:02 | NUR ---
May remove tele for shower Per T.O. from luis Alarcon for the order above.
--- NOTE | 2021-02-11 16:04 | NUR ---
Shift Summary A/Ox4, pleasant and cooperative with care. Independent in room. Denies pain, nausea, vomiting, shortness of breath. Often times, patient is seen NOT wearing his nasal cannula. 91-92% on RA at rest. ECHO ordered and completed this shift. UA sent. Tele: SR 66, no acute cardiac events per tele monitor.
--- NOTE | 2021-02-11 17:03 | NUR ---
Echocardiogram completed.
--- NOTE | 2021-02-12 04:52 | NUR ---
PATIENT HAD 60 SEC RUN OF SVT IN 150'S. HE WAS UNAWARE. THIS SPONTANEOUSLY RESOLVED AND WENT BACK INTO SR 80'S. COMPLAINT OF MIGRAINE WELL INABILITY TO SLEEP AT HS. NOTIFIED AND ORDER FOR 1MG ATIVAN RECEIVED AND GIVEN WITH HS MEDS AND TYLENOL. NO FURTHER COMPLAINTS OF PAIN OR DISCOMFORT
[2021-02-12 06:06] LABS: BASOPHILS ABSOLUTE AUTO 0.04 K/mm3 (0.00-0.23); BASOPHILS PERCENT AUTO 0 % (0-2); EOSINOPHILS PERCENT AUTO 0 % (0-6); Hematocrit 42.8 % (37.0-53.0); Hemoglobin 14.8 g/dL (13.5-17.5); IMMATURE GRAN ABSOLUTE AUTO 0.25 K/mm3 (0.00-0.10); IMMATURE GRAN PERCENT AUTO 1 % (0-1); LYMPHOCYTES ABSOLUTE AUTO 0.82 K/mm3 (0.84-5.20); LYMPHOCYTES PERCENT AUTO 3 % (21-46); MONOCYTES ABSOLUTE AUTO 0.87 K/mm3 (0.16-1.47); MONOCYTES PERCENT AUTO 3 % (4-13); Mean Corpuscular HGB 31.5 pg (26.0-34.0); Mean Corpuscular HGB Conc 34.6 g/dL (31.5-36.5); Mean Corpuscular Volume 91 fL (80-100); Mean Platelet Volume 9.2 fL (9.1-12.4); NEUTROPHILS PERCENT AUTO 93 % (41-73); Platelet Count 439 K/mm3 (150-400); RDW Coefficient Variation 12.8 % (11.7-14.2); RDW Standard Deviation 42.5 fL (35.1-46.3); White Blood Cell Count 29.78 K/mm3 (4.00-11.30)
[2021-02-12 06:22] LABS: Albumin, Blood 3.2 g/dL (3.4-5.0); Anion Gap 6 mmol/L (6-16); Blood Urea Nitrogen 13 mg/dL (8-24); Bun/Creatinine Ratio 19.3 (12.0-20.0); CO2, Blood 24 mmol/L (21-32); Calcium, Blood 9.7 mg/dL (8.5-10.1); Chloride, Blood 110 mmol/L (98-108); Creatinine, Blood 0.67 mg/dL (0.60-1.20); Glomerular Filtration Rate >60 (60-); Glucose, Blood 130 mg/dL (70-99); Phosphorus, Blood 3.5 mg/dL (2.5-4.9); Potassium, Blood 4.4 mmol/L (3.5-5.5); Sodium, Blood 140 mmol/L (136-145)
--- NOTE | 2021-02-12 17:07 | NUR ---
SHIFT SUMMARY PATIENT ALERT AND ORIENTED, INDEPENDENT IN THE ROOM. PATIENT UP WALKING IN THE HALLS PERIODICALLY THROUGHOUT THIS SHIFT. NO ACUTE CHANGES THIS SHIFT. PATIENT DENIES SOB OR CHEST PAIN THIS SHIFT. 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
[2021-02-13 05:18] LABS: BASOPHILS ABSOLUTE AUTO 0.05 K/mm3 (0.00-0.23); BASOPHILS PERCENT AUTO 0 % (0-2); EOSINOPHILS PERCENT AUTO 0 % (0-6); Hematocrit 44.7 % (37.0-53.0); Hemoglobin 14.8 g/dL (13.5-17.5); IMMATURE GRAN ABSOLUTE AUTO 0.27 K/mm3 (0.00-0.10); IMMATURE GRAN PERCENT AUTO 1 % (0-1); LYMPHOCYTES ABSOLUTE AUTO 0.92 K/mm3 (0.84-5.20); LYMPHOCYTES PERCENT AUTO 4 % (21-46); MONOCYTES ABSOLUTE AUTO 1.02 K/mm3 (0.16-1.47); MONOCYTES PERCENT AUTO 4 % (4-13); Mean Corpuscular HGB Conc 33.1 g/dL (31.5-36.5); Mean Corpuscular Volume 94 fL (80-100); Mean Platelet Volume 9.9 fL (9.1-12.4); NEUTROPHILS ABSOLUTE AUTO 21.88 K/mm3 (1.96-9.15); NEUTROPHILS PERCENT AUTO 91 % (41-73); Platelet Count 428 K/mm3 (150-400); RDW Coefficient Variation 13.1 % (11.7-14.2); Red Blood Cell Count 4.78 M/mm3 (4.30-5.90); White Blood Cell Count 24.14 K/mm3 (4.00-11.30)
--- NOTE | 2021-02-13 05:58 | NUR ---
NO CHANGES NOTED OVERNIGHT. PATIENT REMAINED ON ROOM AIR, NO COMPLAINTS OF PAIN. DID COMPLAIN OF HEARTBURN AROUND 2400. PATIENT C/O HEARTBURN LAST NIGHT, THEN VOMITED, ORDER OBTAINED FOR MAALOX AND ZOFRAN. BOTH WERE GIVEN WITH RELIEF.
[2021-02-13] MEDS ORDERED: OMEP20ER PO (13:36)
[2021-02-13] MEDS ORDERED: PRED20 PO (13:37)
--- NOTE | 2021-02-13 16:50 | NUR ---
SHIFT SUMMARY PATIENT ALERT AND ORIENTED THROUGHOUT THIS SHIFT. PATIENT DENIES CP OR SOB THIS SHIFT. PATIENT STATES FRUSTRATION ON DISCHARGE WITHOUT PLANS FOR A PLACE TO LIVE. PATIENT REFUSES OFFER FOR TRANSPORTATION TO [facility]. PATIENT STATES PHONE MISPLACED FROM ER TO MEDICAL FLOOR ROOM. PATIENT SPOKE WITH SECURITY PRIOR TO DISCHARGE ABOUT PHONE. REPLACEMENT PHONE PROVIDED BY [facility]. PATIENT PROVIDED WITH COMMUNITY RESOURCE INFORMATION. IV REMOVED PRIOR TO DISCHARGE. DISCHARGE INFORMATION REVIEWED WITH PATIENT, PATIENT UNWILLING TO PARTICIPATE WITH DISCHARGE INSTRUCTIONS, TURNING THE CONVERSATION TO MISSING PHONE AND LACK OF HOUSING. PATIENT ESCORTED OUT OF THE BUILDING BY SECURITY.
== END 2021-02-13 16:36 | disposition home or self-care (01) | DRG 189 ==
LOC: ER 14:53 → MEDS 20:09 → ENPENDDIS 02-13 09:35 → MEDS 02-13 16:36
PROVIDERS: Emergency Medicine; Internal Medicine; ADMIT Family Medicine
PROC: 3E0234Z Introduction of Serum, Toxoid and Vaccine into Muscle, Percutaneous Approach (ICD-10-PCS; principal; 2021-02-10)
DX: J96.01 Acute respiratory failure with hypoxia (principal); J45.901 Unspecified asthma with (acute) exacerbation; R65.10 Systemic inflammatory response syndrome (SIRS) of non-infectious origin without acute organ dysfunction; Z20.822 Contact with and (suspected) exposure to COVID-19; J44.9 Chronic obstructive pulmonary disease, unspecified; D75.839 Thrombocytosis, unspecified; D72.829 Elevated white blood cell count, unspecified; Z71.51 Drug abuse counseling and surveillance of drug abuser; F15.10 Other stimulant abuse, uncomplicated; F12.10 Cannabis abuse, uncomplicated; F19.10 Other psychoactive substance abuse, uncomplicated; Z23 Encounter for immunization; Z71.6 Tobacco abuse counseling; F17.210 Nicotine dependence, cigarettes, uncomplicated; Z59.00 Homelessness unspecified; Z79.899 Other long term (current) drug therapy; Z79.52 Long term (current) use of systemic steroids
CPT/HCPCS: 36415; 71045; 80048; 80053; 80069; 83735; 84145; 85025; 85379; 90686; 93005; 93010; 93306; 94640; 94644; 94664; 94760; 96374; 99285-25; A9270; J1650; J2405; J2920; J2930; U0004

== ENCOUNTER 2024-11-13 12:37 | Emergency (ER) | payer OTHER ==
[~2024-11-13] VITALS: Ht 175.3 cm; Wt 79.4 kg
[~2024-11-13 12:37] MED LIST changes: +OMEP20ER PO
[2024-11-13] MEDS ORDERED: Ipratropium/Albuterol SulF 2.5-0.5MG/3 ML Amp INH ONE (12:45)
[2024-11-13] MEDS ORDERED: Albuterol 2.5 MG/3 ML VIAL INH ONE (12:50)
[2024-11-13] MEDS ORDERED: NS 500 ML IV SCH (12:55)
[2024-11-13 13:25] LABS: BASOPHILS ABSOLUTE AUTO 0.08 K/mm3 (0.00-0.23); BASOPHILS PERCENT AUTO 1 % (0-2); EOSINOPHILS ABSOLUTE AUTO 0.62 K/mm3 (0.00-0.68); EOSINOPHILS PERCENT AUTO 5 % (0-6); Hematocrit 43.2 % (37.0-53.0); Hemoglobin 14.3 g/dL (13.5-17.5); IMMATURE GRAN ABSOLUTE AUTO 0.04 K/mm3 (0.00-0.10); IMMATURE GRAN PERCENT AUTO 0 % (0-1); LYMPHOCYTES ABSOLUTE AUTO 2.23 K/mm3 (0.84-5.20); LYMPHOCYTES PERCENT AUTO 18 % (21-46); MONOCYTES ABSOLUTE AUTO 0.83 K/mm3 (0.16-1.47); MONOCYTES PERCENT AUTO 7 % (4-13); Mean Corpuscular HGB Conc 33.1 g/dL (31.5-36.5); Mean Corpuscular Volume 89 fL (80-100); NEUTROPHILS ABSOLUTE AUTO 8.63 K/mm3 (1.96-9.15); NEUTROPHILS PERCENT AUTO 70 % (41-73); NRBC ABSOLUTE 0.00 K/mm3 (0.00-0.02); NRBC Auto 0.0 /100 WBC (0.0-0.2); Platelet Count 344 K/mm3 (150-400); RDW Coefficient Variation 13.9 % (11.7-14.2); RDW Standard Deviation 45.0 fL (35.1-46.3)
[2024-11-13] MEDS ORDERED: Albuterol 2.5 MG/3 ML VIAL INH SCH (15:10)
[2024-11-13 15:14] LABS: Alanine Aminotransfer (ALT/SGP 29.0 U/L (12-78); Albumin, Blood 3.0 g/dL (3.4-5.0); Albumin/Globulin Ratio 0.9 (0.8-1.8); Anion Gap 10.0 mmol/L (3-11); Aspartate Aminotrans (AST/SGOT 29.0 U/L (12-37); Bilirubin, Total 0.8 mg/dL (0.1-1.0); Blood Urea Nitrogen 7.0 mg/dL (8-24); CO2, Blood 20.0 mmol/L (21-32); Calcium, Blood 8.3 mg/dL (8.5-10.1); Chloride, Blood 112.0 mmol/L (98-108); Creatinine, Blood 0.85 mg/dL (0.60-1.20); Globulin, Blood 3.3 g/dL (2.2-4.0); Glucose, Blood 95.0 mg/dL (70-99); Magnesium, Blood 2.0 mg/dL (1.6-2.4); Potassium, Blood 3.3 mmol/L (3.5-5.5); Sodium, Blood 139.0 mmol/L (136-145); Total Protein, Blood 6.3 g/dL (6.4-8.2)
[2024-11-13] MEDS ORDERED: PRED20 PO (15:43)
[2024-11-13] MEDS ORDERED: ALBU90OI INH (15:43)
[2024-11-13 16:21] VITALS: BP 134/65
== END 2024-11-13 16:28 | disposition home or self-care (01) ==
LOC: ER 12:37
PROVIDERS: Student in an Organized Health Care Education/Training Program
DX: J44.0 Chronic obstructive pulmonary disease with (acute) lower respiratory infection (principal); J20.9 Acute bronchitis, unspecified; J45.901 Unspecified asthma with (acute) exacerbation; E87.6 Hypokalemia; F17.210 Nicotine dependence, cigarettes, uncomplicated; Z79.51 Long term (current) use of inhaled steroids; Z79.899 Other long term (current) drug therapy
CPT/HCPCS: 71046; 80053; 83690; 83735; 84484; 85025; 93005; 93010; 99285-25; A9270; J7030; J7512